=== PATIENT | female | born 1965 | race Caucasian/White ===

== ENCOUNTER → 2018-09-07 12:41 | Outpatient (CLI) | payer MEDICARE, SELFPAY ==
--- NOTE | 2018-09-07 12:45 | AAVD_ITS ---
Reason For Study: ATHEROSCLEROSIS Aorta Measurements Aorta Doppler Measurements Proximal aorta measures1.63 x 1.61cm. in cross- Peak systolic flow velocities within the proximal sectional axis. aorta measure 72.7 cm/sec. Proximal aorta measures1.62cm. in longitudinal Peak systolic flow velocities within the mid axis. aorta measure 304 cm/sec. Mid aorta measures0.93 x 0.88cm. in cross- Peak systolic flow velocities within the distal sectional axis. aorta measure 232 cm/sec. Mid aorta measures0.90cm. in longitudinal axis. Distal aorta measures0.95 x 0.92cm. in cross- sectional axis. Distal aorta measures0.92cm. in longitudinal axis. Left Iliac Artery Left iliac artery measures 0.62 x 0.64 cm. in the cross-sectional axis. Left iliac artery measures 0.63 cm. in the longitudinal axis. Peak systolic velocity in the left iliac artery measures 170 cm/sec. Right Iliac Artery Right iliac artery measures 0.58 x 0.60 cm. in the cross-sectional axis. Right iliac artery measures 0.62 cm. in the longitudinal axis. Peak systolic velocity in the right iliac artery measures 206 cm/sec. Procedure Exam performed in department. Interpretation Summary 1. Stenosis mid aortic stent but appears triphasic flow maintained below. Ordering Physician: Ra Paul Referring Physician: Herrera Sauceda Performed By: Su Harding RVT and Student
--- NOTE | 2018-09-09 11:50 | LEAS ---
Arterial Study - Arterial Study Arterial Study: Date of scan 09/07/2018 Interpreting physician: Dr. Paul History: Patient with previous aortoiliac stenosis Interpretation: Right lower extremity with an RAMIRO 0.97 of the DP and the PT with triphasic flow noted. Left lower extremity and RAMIRO 0.88 of the PT 0.89 in the DP but also triphasic flow again noted of both vessels. Impression: 1. No evidence of significant arterial occlusive disease at rest in the right leg with this patient with an RAMIRO 0.97 2. No evidence of significant arterial occlusive disease at rest with this patient on the left with an RAMIRO 0.89
== END ==
PROVIDERS: Family Provider Internal Medicine; PCP Internal Medicine; Visit Provider Surgery Vascular Surgery
DX: I70.0 Atherosclerosis of aorta (principal); I77.1 Stricture of artery; I70.25 Atherosclerosis of native arteries of other extremities with ulceration; I10 Essential (primary) hypertension; E11.9 Type 2 diabetes mellitus without complications; F17.200 Nicotine dependence, unspecified, uncomplicated
CPT/HCPCS: 93922; 93978

== ENCOUNTER 2022-08-28 06:33 | Day surgery (SDC) | payer MEDICARE, MEDICAID, SELFPAY ==
[2022-08-28 06:51] LABS: Hematocrit 40.8 % (37-47); Hemoglobin 14.2 g/dL (12.0-15.0); Mean Corp Hgb Conc 34.8 g/dL (32-36); Mean Corpuscular Hgb 32.1 pg (27.0-32.0); Mean Corpuscular Volume 92.3 fL (81-99); Platelet Count 191 K/mm3 (150-450); RBC Distribution Width CV 11.9 % (11.6-14.6); Red Blood Count 4.42 M/mm3 (4.2-5.4); White Blood Count 8.8 K/mm3 (4.4-11.0)
[2022-08-28 07:04] LABS: Anion Gap 5 (5-15); BUN 13 mg/dL (7-18); BUN/Creat Ratio 15.9 RATIO (10-20); Calcium,Total 8.7 mg/dL (8.5-10.1); Chloride 109 mmol/L (98-107); Creatinine, Serum 0.82 mg/dL (0.55-1.02); EST Glomerular Filtration Rate 77 mL/min (>60); Est Glom Filt Rate - Afr Amer 93 mL/min (>60); Glucose 160 mg/dL (74-106); Potassium 4.1 mmol/L (3.5-5.1); Sodium Level 143 mmol/L (136-145)
--- NOTE | 2022-08-28 08:39 | PCM.OPRPT ---
Problems Associated Problem List Diagnoses (1) PAD (peripheral artery disease): Report of Operation Date of Procedure: 08/28/22 Pre-Operative Diagnosis: PAD with right buttock claudication Post-Operative Diagnosis: The same Surgery/Procedure Performed:: 1. Ultrasound access retrograde right common femoral artery. 2. Aortogram with iliofemoral angiogram. 3. Balloon angioplasty of the aorta with a 10 mm balloon. 4. Balloon angioplasty of the right common iliac artery with a 7 drug-coated balloon. 5. Closure with Mynx Surgeon: Ra Paul Type of Anesthesia: IV Sedation Description of Procedure: Patient brought to the American Sign Language Teacher. Underwent appropriate timeout consent. Underwent sedation. Prepped and draped in a sterile fashion. We did ultrasound access retrograde right common femoral artery. Put a Glidewire up and then a 6 Sudanese sheath. Get 5000 units of heparin. We did an aortogram with iliofemoral angiogram. Showed may be something in the contrast in the mid aorta. Corresponds a little bit previous ultrasound. Bilateral iliacs appeared patent and good flow in this view. We then ballooned the aorta with a 10 mm balloon. We then reimaged in SOFI at 40 degrees roughly. This did show that proximal common iliac mild to moderate stenosis corresponding with the ultrasound elevated velocities. The aortic stent was widely patent with good flow. We then balloon through the iliac with a 7 drug-coated balloon for over 3 minutes. Completion was improved with better flow through this. There is good flow in throughout both internal iliacs and down both femorals. We then removed out the balloon and wires deployed a minx with good hemostasis. She was brought to recovery then in stable condition. Sedation: This 57-year-old female underwent moderate sedation given by Dr. Ra Paul. She was monitored EKG blood pressure and pulse ox for over the 30 minutes of the procedure. See the EMR for the complete record.
== END 2022-08-28 12:40 | disposition home or self-care (01) ==
LOC: CLSP 06:37
PROVIDERS: PCP Registered Nurse; Visit Provider Surgery Vascular Surgery
DX: I73.9 Peripheral vascular disease, unspecified (principal); E11.51 Type 2 diabetes mellitus with diabetic peripheral angiopathy without gangrene; I77.1 Stricture of artery; I10 Essential (primary) hypertension; J45.909 Unspecified asthma, uncomplicated; E78.00 Pure hypercholesterolemia, unspecified; K21.9 Gastro-esophageal reflux disease without esophagitis; Z79.84 Long term (current) use of oral hypoglycemic drugs; Z79.899 Other long term (current) drug therapy; Z87.891 Personal history of nicotine dependence; Z79.01 Long term (current) use of anticoagulants
CPT/HCPCS: 36200; 36245; 36246; 36415; 37220; 37246; 75625; 75710; 75716; 76937; 80048; 85027; 93005; 99152; 99153; C1760; C2623; J7040; Q9967; C1725; C1769

== ENCOUNTER → 2024-01-29 | Outpatient (CLI) | payer MEDICARE, MEDICAID, SELFPAY ==
--- NOTE | 2024-01-29 09:01 | ART_ITS ---
Reason For Study: Aftercare/ HX AO Stent Procedure A bilateral lower extremity continuous wave Doppler with analog waveform analysis and ankle brachial indexes. Left Segmental Pressures Left brachial= 144mmHg. Left posterior tibial artery = 137mmHg. Left dorsalis pedis artery = 128mmHg. Left digit = 98 mmHg. The left posterior tibial artery waveforms are triphasic. The left dorsalis pedis waveforms are triphasic. Right Segmental Pressures Right brachial= 133mmHg. Right posterior tibial artery = 144mmHg. Right dorsalis pedis artery = 133mmHg. Right digit = 111 mmHg. The right posterior tibial artery waveforms are triphasic. The right dorsalis pedis waveforms are triphasic. Indices The right ankle brachial index by the posterior tibial artery is 1.00. The right ankle brachial index by the dorsalis pedis is 0.92. The right digital-brachial index is 0.77. The left ankle brachial index by the posterior tibial artery is 0.95. The left ankle brachial index by the dorsalis pedis is 0.89. The left post exercise ankle brachial index is 0.68. VL/Ankle Brachial Index Interpretation Summary Bilateral normal at rest with RAMIRO's listed. Ordering Physician: Ra Paul Referring Physician: Etta Jay Performed By: Kelvin Cline RVT
--- NOTE | 2024-01-29 09:01 | AAVD_ITS ---
Reason For Study: Aftercare / HX AO Stent Aorta Measurements Aorta Doppler Measurements Proximal aorta measures1.49 x 1.59cm. in cross- Peak systolic flow velocities within the proximal sectional axis. aorta measure 81.0 cm/sec. Proximal aorta measures1.54cm. in longitudinal Peak systolic flow velocities within the mid aorta axis. measure 87.5 cm/sec. Mid aorta measures1.25 x1.35cm. in cross-sectionalPeak systolic flow velocities within the distal axis. aorta measure 61.4 cm/sec. Mid aorta measures1.36cm. in longitudinal axis. Stent noted in Distal Aorta AO Distal - Stent noted. Prox Stent PSV - 99.7cm/s Distal aorta measures1.0 x 1.1cm. in cross- Mid Stent PSV - 105.2cm/s sectional axis. Post Stent PSV - 112.5cm/s. Distal aorta measures1.1cm. in longitudinal axis. Left Iliac Artery Left iliac artery measures 0.66 x 0.75 cm. in the cross-sectional axis. Left iliac artery measures 0.68 cm. in the longitudinal axis. Peak systolic velocity in the left iliac artery measures 111.1 cm/sec. Right Iliac Artery Right iliac artery measures 0.71 x 0.83 cm. in the cross-sectional axis. Right iliac artery measures 0.82 cm. in the longitudinal axis. Peak systolic velocity in the right iliac artery measures 146.7 cm/sec. VL/Abd Aortic/IVC Duplex scan Interpretation Summary Aortoiliac segment and aortic stent patent with no stenosis. Ordering Physician: Ra Paul Referring Physician: Etta Jay Performed By: Kelvin Cline RVT
== END | disposition home or self-care (01) ==
LOC: CVS 08:56
PROVIDERS: PCP Registered Nurse; Referring Provider Surgery Vascular Surgery; Visit Provider Surgery Vascular Surgery
DX: I70.25 Atherosclerosis of native arteries of other extremities with ulceration (principal); I70.213 Atherosclerosis of native arteries of extremities with intermittent claudication, bilateral legs; I10 Essential (primary) hypertension; F17.200 Nicotine dependence, unspecified, uncomplicated
CPT/HCPCS: 93922; 93978

== ENCOUNTER → 2025-09-14 | Outpatient (CLI) | payer MEDICARE, MEDICAID, SELFPAY ==
--- NOTE | 2025-09-14 08:52 | ART_ITS ---
Reason For Study Reason For Study: Atherosclerosis Procedure A bilateral lower extremity continuous wave Doppler with analog waveform analysis and ankle brachial indexes. Left Segmental Pressures Left brachial= 143mmHg. Left posterior tibial artery = 130mmHg. Left dorsalis pedis artery = 126mmHg. Left digit = 90 mmHg. The left dorsalis pedis waveforms are triphasic. The left posterior tibial artery waveforms are triphasic. Right Segmental Pressures Right brachial= 132mmHg. Right posterior tibial artery = 139mmHg. Right dorsalis pedis artery = 127mmHg. Right digit = 86 mmHg. The right dorsalis pedis waveforms are triphasic. The right posterior tibial artery waveforms are triphasic. Indices The right ankle brachial index by the dorsalis pedis is 0.89. The right ankle brachial index by the posterior tibial artery is 0.97. The right digital-brachial index is 0.60. The left ankle brachial index by the dorsalis pedis is 0.88. The left ankle brachial index by the posterior tibial artery is 0.91. The left digital-brachial index is 0.63. VL/Ankle Brachial Index Interpretation Summary Resting ankle-brachial indices appear bilaterally normal. Ordering Physician: Ra Paul Referring Physician: Etta Jay Performed By: Irena John RVT and Student
--- NOTE | 2025-09-14 08:52 | AAVD_ITS ---
Reason For Study Reason For Study: Atherosclerosis Aorta Measurements Aorta Doppler Measurements Proximal aorta measures1.59 x 1.59cm. in cross-sectional Peak systolic flow velocities within the proximal aorta axis. measure 79.6 cm/sec. Proximal aorta measures1.56cm. in longitudinal axis. Peak systolic flow velocities within the mid aorta measure Mid aorta measures1.34 x 1.35cm. in cross-sectional axis. 90.4 cm/sec. Mid aorta measures1.33cm. in longitudinal axis. Stent noted in Distal Aorta Aorta Distal - Stent noted. Prox Stent PSV - 92.2 cm/s Distal aorta measures 1.21 x 1.17 cm. in cross-sectional Mid Stent PSV - 103.1 cm/s axis. Distal Stent PSV - 213.1 cm/s. Distal aorta measures 1.16 cm. in longitudinal axis. Left Iliac Artery Left iliac artery measures 0.60 x 0.62 cm. in the cross-sectional axis. Left iliac artery measures 0.73 cm. in the longitudinal axis. Peak systolic velocity in the left iliac artery measures 161.4 cm/sec. Right Iliac Artery Right iliac artery measures 0.71 x 0.68 cm. in the cross-sectional axis. Right iliac artery measures 0.67 cm. in the longitudinal axis. Peak systolic velocity in the right iliac artery measures 171.1 cm/sec. Procedure Aorta IVC Iliac vasculature or bypass grafts 40660. Exam performed in department. VL/Abd Aortic/IVC Duplex scan Interpretation Summary Mild stenosis distal aortic stent. Ordering Physician: Ra Paul Referring Physician: Etta Jay Performed By: Irena John RVT
== END | disposition home or self-care (01) ==
LOC: CVS 08:44
PROVIDERS: PCP Registered Nurse; Referring Provider Surgery Vascular Surgery; Visit Provider Surgery Vascular Surgery
DX: I77.1 Stricture of artery (principal); I70.25 Atherosclerosis of native arteries of other extremities with ulceration; E11.9 Type 2 diabetes mellitus without complications; I70.219 Atherosclerosis of native arteries of extremities with intermittent claudication, unspecified extremity; F17.200 Nicotine dependence, unspecified, uncomplicated; I10 Essential (primary) hypertension
CPT/HCPCS: 93922; 93978